=== PATIENT | male | born 1930 | race Caucasian/White ===

== ENCOUNTER 2017-10-05 07:35 | Day surgery (SDC) | payer OTHER, BC ==
[2017-09-28 16:51] VITALS: BMI 24.2
[2017-10-05] MEDS ORDERED: MIDAZOLAM HCL 2 MG/2 ML SINGLE DOSE VIAL ONE (08:45)
[2017-10-05] MEDS ORDERED: LIDOCAINE HCL 2% (50ML VIAL) INF ONE (08:50)
[2017-10-05 09:50] VITALS: TEMP 97.6
[2017-10-05 09:52] VITALS: BP 158/80; PULSE 66
--- NOTE | 2017-10-05 17:24 | HP ---
DATE OF ADMISSION: 10/05/2017 PREOPERATIVE DIAGNOSIS: Right carpal tunnel syndrome. POSTOPERATIVE DIAGNOSES: Right carpal tunnel syndrome. OPERATIVE PROCEDURE: Right carpal tunnel release. SURGEON: Khanh Macario MD ANESTHESIA: Local with sedation. COMPLICATIONS: None. ESTIMATED BLOOD LOSS: Minimal. INDICATION FOR PROCEDURE: The patient is an 87-year-old male with the above finding, indicated for operative treatment. The risks, benefits and alternatives were discussed with the patient at length and proper informed consent was obtained. Of note, the patient does have a mass in the distal forearm which was present prior to the procedure for a long time. We had decided in the office not to address this mass. However, due to the level of the proximity of the mass to the median nerve, I extended my incision a little bit proximally to ensure that full release was not compromised by the mass. DESCRIPTION OF PROCEDURE: After proper identification of the patient and the correct operative site, the patient was brought to the operating room and placed supine on the operating table with all prominences well padded. Sedation and local anesthetic were given. The right upper extremity was prepped and draped in the usual sterile fashion. A well-padded tourniquet was placed after sterile prep. An Esmarch bandage was used to exsanguinate the right upper extremity and the tourniquet was inflated to 250 mmHg. A longitudinal incision was made over the proximal aspect of the palm and extended in a zigzag fashion just proximal to the wrist crease. The incision was taken sharply through the skin with blunt and sharp dissection through the subcutaneous tissues. The median nerve was identified proximally and traced from proximal to distal direction. The transverse carpal ligament was divided along with the distal 4 cm of the antebrachial fascia which provided complete release of the median nerve at the wrist. There was no specific impingement on the nerve from the mass. The mass itself was not visualized or dissected. The wound was irrigated with saline and repaired with 5-0 nylon suture. Sterile dressings were applied. The patient was reversed from anesthesia and brought to the recovery room in stable condition. He tolerated the procedure well. KHANH MACARIO M.D. [id number]
== END 2017-10-05 10:00 | disposition home or self-care (01) ==
LOC: FASU 07:35
PROVIDERS: ATTEND Orthopaedic Surgery Hand Surgery
PROC: 01N50ZZ Release Median Nerve, Open Approach (ICD-10-PCS; principal; 2017-10-05 08:44)
DX: G56.01 Carpal tunnel syndrome, right upper limb (principal)
CPT/HCPCS: 82962